=== PATIENT | female | born 2000 | race African-American/Black ===

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

== ENCOUNTER 2024-04-07 16:53 | Emergency (ER) | payer OTHER, SELFPAY ==
[2024-04-07] MEDS ORDERED: Ibuprofen 200 MG TAB ONE (17:06)
== END 2024-04-07 18:55 | disposition home or self-care (01) ==
LOC: MADERS 16:53
DX: J11.1 Influenza due to unidentified influenza virus with other respiratory manifestations (principal)
CPT/HCPCS: 71046; 87081; 87428; 87430